=== PATIENT | male | born 2005 | race Caucasian/White ===

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

== ENCOUNTER 2025-06-10 12:42 | Emergency (ER) | payer OTHER ==
[~2025-06-10] VITALS: Ht 177.8 cm; Wt 92.0 kg
[~2025-06-10 12:42] MED LIST: NORCO 5-325 TA1 EACH PO; TYLENOL325 M1 PO
[2025-06-10 14:11] VITALS: BP 132/84
== END 2025-06-10 14:11 | disposition home or self-care (01) ==
LOC: ED 12:42
DX: S61.219A Laceration without foreign body of unspecified finger without damage to nail, initial encounter (principal); W23.0XXA Caught, crushed, jammed, or pinched between moving objects, initial encounter
CPT/HCPCS: 12001; 99282